=== PATIENT | male | born 1980 | race Caucasian/White ===

== ENCOUNTER 2021-01-03 18:56 | Emergency (ER) | payer SELFPAY ==
[~2021-01-03] VITALS: Ht 175.3 cm; Wt 75.0 kg
[2021-01-03 22:15] VITALS: BP 146/87
== END 2021-01-03 22:30 | disposition home or self-care (01) ==
LOC: ER 18:56
DX: T50.901A Poisoning by unspecified drugs, medicaments and biological substances, accidental (unintentional), initial encounter (principal); R00.0 Tachycardia, unspecified; Y92.830 Public park as the place of occurrence of the external cause
CPT/HCPCS: 82962; 93005; 99283